=== PATIENT | male | born 2005 | race Hispanic/Latino ===

== ENCOUNTER 2025-04-23 08:17 | Emergency (ER) | payer OTHER ==
[~2025-04-23] VITALS: Ht 172.7 cm; Wt 100.7 kg
[2025-04-23] MEDS: KETOROLAC 60 MG/2 ML VIAL IM ONE (09:59)
[2025-04-23 10:13] VITALS: BP 120/62; TEMP 97.1; O2SAT 99
== END 2025-04-23 10:14 | disposition home or self-care (01) ==
LOC: EDBD 08:17 → M ED 08:17
DX: S83.91XA Sprain of unspecified site of right knee, initial encounter (principal); Y92.9 Unspecified place or not applicable; Y93.9 Activity, unspecified; Y99.0 Civilian activity done for income or pay; W01.0XXA Fall on same level from slipping, tripping and stumbling without subsequent striking against object, initial encounter
CPT/HCPCS: 73564; 96372; 99284; J1885